=== PATIENT | female | born 1970 | race Caucasian/White ===

== ENCOUNTER 2018-04-01 10:35 | Emergency (ER) | payer OTHER ==
[~2018-04-01] VITALS: Ht 157.5 cm; Wt 64.9 kg
[~2018-04-01 10:35] MED LIST: ALBIPROI; ALBU90OI; ALBU90OI INH; ALBU90OI6 INH; AZIT250 PO; CEPH500 PO; CRUTCH2 XX; CRUTCH4 USE; DIPH50 PO; FLUSAL1005; FLUSAL2505; HYDACE5 PO; HYDACE7.5 PO; HYDR1TAB94 PO; IBUP600 PO; IBUP800 PO; NAPR500 PO; OXYACE5T PO; OXYC5 PO; PRED10 PO; PRED20 PO; PROACE100 PO; PROM25; RANI150 PO; RXPROACE PO; RXTRAM50 PO; TRAM50 PO; [UNRECOGNIZED DRUG - CODE]
[2018-04-01] MEDS ORDERED: Triamcinolone A15 G3 TOP (11:59)
== END 2018-04-01 12:09 | disposition home or self-care (01) ==
LOC: ER 10:35
DX: L23.7 Allergic contact dermatitis due to plants, except food (principal); F17.200 Nicotine dependence, unspecified, uncomplicated; Z88.0 Allergy status to penicillin; Z88.5 Allergy status to narcotic agent; Z88.8 Allergy status to other drugs, medicaments and biological substances
CPT/HCPCS: 96372; 99283; J3301

== ENCOUNTER 2018-04-03 13:44 | Emergency (ER) | payer OTHER ==
[~2018-04-03] VITALS: Ht 154.9 cm; Wt 64.9 kg
[~2018-04-03 13:44] MED LIST changes: +Triamcinolone A15 G3 TOP
[2018-04-03] MEDS ORDERED: DIPH50 PO (13:51)
[2018-04-03] MEDS ORDERED: DOXEPIN HCL45 GM TOP (14:07)
[2018-04-03] MEDS ORDERED: Prednisone20 MG PO (14:07)
== END 2018-04-03 14:25 | disposition home or self-care (01) ==
LOC: ER 13:44
DX: L23.7 Allergic contact dermatitis due to plants, except food (principal); Z88.5 Allergy status to narcotic agent; Z88.8 Allergy status to other drugs, medicaments and biological substances; Z79.899 Other long term (current) drug therapy; F17.200 Nicotine dependence, unspecified, uncomplicated
CPT/HCPCS: 96372; 99283; J1100

== ENCOUNTER 2018-12-13 09:13 | Emergency (ER) | payer OTHER ==
[~2018-12-13] VITALS: Ht 154.9 cm; Wt 21.8 kg
[~2018-12-13 09:13] MED LIST changes: +DOXEPIN HCL45 GM TOP; +Prednisone20 MG PO
[2018-12-13] MEDS ORDERED: ALBU90OI61 INH (10:02)
[2018-12-13] MEDS ORDERED: Voltaren100 GM TOP (10:02)
[2018-12-13] MEDS ORDERED: IBUP800 PO (10:02)
== END 2018-12-13 10:18 | disposition home or self-care (01) ==
LOC: ER 09:13
DX: M25.561 Pain in right knee (principal); F17.200 Nicotine dependence, unspecified, uncomplicated; Z88.0 Allergy status to penicillin; Z88.1 Allergy status to other antibiotic agents; Z79.899 Other long term (current) drug therapy
CPT/HCPCS: 99283-25

== ENCOUNTER 2021-04-21 18:32 | Emergency (ER) | payer OTHER ==
[~2021-04-21] VITALS: Ht 157.5 cm; Wt 74.8 kg
[~2021-04-21 18:32] MED LIST changes: +ALBU90OI61 INH; +Voltaren100 GM TOP
== END 2021-04-21 20:52 | disposition home or self-care (01) ==
LOC: ER 18:32
DX: M25.561 Pain in right knee (principal); F17.200 Nicotine dependence, unspecified, uncomplicated; Z88.5 Allergy status to narcotic agent; Z88.8 Allergy status to other drugs, medicaments and biological substances; Z79.899 Other long term (current) drug therapy; Z88.0 Allergy status to penicillin
CPT/HCPCS: 99283

== ENCOUNTER 2021-08-07 06:51 | Emergency (ER) | payer OTHER | END 2021-08-07 07:37 | disposition left against medical advice (07) | LOC: ER 06:51 | DX: Z53.21 Procedure and treatment not carried out due to patient leaving prior to being seen by health care provider (principal) ==

== ENCOUNTER 2021-08-14 10:27 | Emergency (ER) | payer OTHER ==
[~2021-08-14] VITALS: Ht 154.9 cm; Wt 74.8 kg
== END 2021-08-14 11:36 | disposition home or self-care (01) ==
LOC: ER 10:27
DX: L23.7 Allergic contact dermatitis due to plants, except food (principal); F17.200 Nicotine dependence, unspecified, uncomplicated; Z88.0 Allergy status to penicillin; Z88.5 Allergy status to narcotic agent; Z88.8 Allergy status to other drugs, medicaments and biological substances; Z79.899 Other long term (current) drug therapy
CPT/HCPCS: 96372; 99282-25; A9270; J2930

== ENCOUNTER 2021-11-19 11:01 | Emergency (ER) | payer OTHER ==
[~2021-11-19] VITALS: Ht 157.5 cm; Wt 78.0 kg
[2021-11-19] MEDS ORDERED: OXYC5 PO (12:22)
[2021-11-19] MEDS ORDERED: Bactrim Ds Tab1 EACH PO (12:22)
== END 2021-11-19 12:34 | disposition home or self-care (01) ==
LOC: ER 11:01
DX: L03.116 Cellulitis of left lower limb (principal); F17.200 Nicotine dependence, unspecified, uncomplicated; Z88.0 Allergy status to penicillin; Z88.5 Allergy status to narcotic agent; Z88.8 Allergy status to other drugs, medicaments and biological substances
CPT/HCPCS: 73620; 99283-25; A9270

== ENCOUNTER 2022-06-24 06:25 | Emergency (ER) | payer OTHER ==
[~2022-06-24] VITALS: Ht 157.5 cm; Wt 74.8 kg
[~2022-06-24 06:25] MED LIST changes: +Bactrim Ds Tab1 EACH PO
== END 2022-06-24 07:43 | disposition home or self-care (01) ==
LOC: ER 06:25
DX: L23.7 Allergic contact dermatitis due to plants, except food (principal); F17.210 Nicotine dependence, cigarettes, uncomplicated; Z79.899 Other long term (current) drug therapy
CPT/HCPCS: A9270; J3301